=== PATIENT | male | born 1960 | race Caucasian/White ===

== ENCOUNTER 2021-05-09 21:25 | Emergency (ER) | payer OTHER ==
[2021-05-09] MEDS ORDERED: Sodium Chloride 0.9% 10 ML Syringe FLUSH PRN (21:40)
[2021-05-09 22:39] LABS: ANION GAP 9.7 meq/L (7-15); CHLORIDE,CL 105 mmol/L (98-107); SODIUM,NA 142 mmol/L (136-145)
[2021-05-09 23:39] VITALS: BP 137/78; PULSE 89
== END 2021-05-09 22:53 | disposition home or self-care (01) ==
LOC: LL.ED 21:25
DX: R00.2 Palpitations (principal); E83.42 Hypomagnesemia; E78.00 Pure hypercholesterolemia, unspecified; Z88.2 Allergy status to sulfonamides; Z79.899 Other long term (current) drug therapy
CPT/HCPCS: 36415; 80053; 83735; 84443; 84484; 85025; 93005; 93010; 99284; 99285-25

== ENCOUNTER 2022-03-08 16:44 | Emergency (ER) | payer OTHER ==
[2022-03-08 16:50] VITALS: BP 144/86; PULSE 89
== END 2022-03-08 17:40 | disposition home or self-care (01) ==
LOC: LL.ED 16:44
DX: M70.32 Other bursitis of elbow, left elbow (principal); E78.00 Pure hypercholesterolemia, unspecified; Z88.2 Allergy status to sulfonamides; Z79.899 Other long term (current) drug therapy
CPT/HCPCS: 73070-LT; 99283

== ENCOUNTER 2024-05-11 16:55 | Emergency (ER) | payer OTHER ==
[2024-05-11 17:19] LABS: BASOPHILS ABSOLUTE AUTO 0.03 K/uL (0.00-0.20); BASOPHILS PERCENT AUTO 0.3 % (0.0-2.0); EOSINOPHILS ABSOLUTE AUTO 0.23 K/uL (0.00-0.50); EOSINOPHILS PERCENT AUTO 2.6 % (0.0-5.0); HEMATOCRIT 44.6 % (39.0-49.0); HEMOGLOBIN 15.3 g/dL (13.1-16.8); IMMATURE GRAN ABSOLUTE AUTO 0.03 10^3/uL (0.00-0.04); IMMATURE GRAN PERCENT AUTO 0.3 % (0.0-0.4); LYMPHOCYTES ABSOLUTE AUTO 3.04 K/uL (0.50-3.50); LYMPHOCYTES PERCENT AUTO 34.3 % (10.0-50.0); MEAN CORPUSCULAR HEMOGLOBIN 30.1 pg (28.2-33.3); MEAN CORPUSCULAR HGB CONC 34.3 g/dL (31.7-36.0); MEAN CORPUSCULAR VOLUME 87.6 fL (84.0-98.0); MONOCYTES ABSOLUTE AUTO 0.59 K/uL (0.00-1.00); MONOCYTES PERCENT AUTO 6.7 % (2.0-14.0); NEUTROPHILS ABSOLUTE AUTO 4.95 K/uL (1.40-7.00); NEUTROPHILS PERCENT AUTO 55.8 % (45.0-80.0); PLATELET COUNT,PLT 239 K/uL (150-350); RED BLOOD CELL COUNT 5.09 M/uL (4.33-5.41); WHITE BLOOD CELL COUNT,WBC 8.9 K/uL (4.0-10.2)
[2024-05-11] MEDS: Diltiazem 25 MG/5 ML SDV IVPUSH ONE (17:30)
[2024-05-11] MEDS: Sodium Chloride 0.9% 10 ML Syringe FLUSH PRN (17:30)
[2024-05-11 17:46] LABS: ANION GAP 11.3 meq/L (7-15); BILIRUBIN TOTAL 0.3 mg/dL (0.2-1.0); CALCIUM 9.3 mg/dL (8.5-10.1); CARBON DIOXIDE,CO2 26.7 mmol/L (21.0-32.0); CREATININE 1.32 mg/dL (0.51-1.17); EST CRCL DRUG DOSING (CG) 60.42 mL/min; ETHANOL BLOOD MEDICAL 0.005 g/dL (0.000-0.080); MAGNESIUM 1.7 mg/dL (1.8-2.4); POTASSIUM,K 4.1 mmol/L (3.5-5.1); PROTEIN TOTAL,TP 7.7 g/dL (6.4-8.2)
[2024-05-11 18:13] LABS: AMPHETAMINES SCREEN, URINE NEGATIVE (NEGATIVE); BARBITURATE SCREEN,URINE NEGATIVE (NEGATIVE); BENZODIAZEPINES SCREEN,URINE NEGATIVE (NEGATIVE); COCAINE METABOLITES,URINE NEGATIVE (NEGATIVE); EDDP,URINE SCREEN NEGATIVE (NEGATIVE); METHAMPHETAMINES SCREEN, URINE NEGATIVE (NEGATIVE); TCA SCREEN,URINE NEGATIVE (NEGATIVE); THC SCREEN,URINE 50 NG/ML NEGATIVE (NEGATIVE)
[2024-05-11 18:15] LABS: BUPRENORPHINE SCREEN,URINE NEGATIVE (NEGATIVE); OXYCODONE SCREEN,URINE NEGATIVE (NEGATIVE)
[2024-05-11] MEDS: Iopamidol 755 Mg/ML 100 ML Bottle IVPUSH ONE (18:50)
[2024-05-11] MEDS: Magnesium Sulfat/D5W 1GM/100ML 1 GM in Premix Bag 1 BAG IV ONE (19:05)
[2024-05-11] MEDS: Apixaban 5 MG Tab PO ONE (19:05)
[2024-05-11] MEDS: Sodium Chloride 0.9% 500 ML IV SCH (19:05)
[2024-05-11] MEDS: Diltiazem IR 60 MG Tab PO ONE (19:05)
[2024-05-11 20:04] VITALS: BP 122/80; PULSE 64
== END 2024-05-11 20:19 | disposition home or self-care (01) ==
LOC: LL.ED 16:55
DX: I48.91 Unspecified atrial fibrillation (principal); E83.42 Hypomagnesemia; E78.00 Pure hypercholesterolemia, unspecified; Z90.49 Acquired absence of other specified parts of digestive tract; Z79.899 Other long term (current) drug therapy; Z88.2 Allergy status to sulfonamides
CPT/HCPCS: 36415; 71045; 71275; 80053; 80305-QW; 80307; 83735; 83880; 84484; 85025; 85379; 93005; 93010; 96365; 96375; 99284; 99285-25; A9270-GY; J3475; J3490; J7040; Q9967

== ENCOUNTER 2024-05-15 07:27 | Emergency (ER) | payer OTHER ==
[2024-05-15 07:43] LABS: BASOPHILS ABSOLUTE AUTO 0.02 K/uL (0.00-0.20); BASOPHILS PERCENT AUTO 0.3 % (0.0-2.0); EOSINOPHILS ABSOLUTE AUTO 0.04 K/uL (0.00-0.50); EOSINOPHILS PERCENT AUTO 0.5 % (0.0-5.0); HEMATOCRIT 44.8 % (39.0-49.0); IMMATURE GRAN ABSOLUTE AUTO 0.02 10^3/uL (0.00-0.04); IMMATURE GRAN PERCENT AUTO 0.3 % (0.0-0.4); LYMPHOCYTES ABSOLUTE AUTO 1.67 K/uL (0.50-3.50); LYMPHOCYTES PERCENT AUTO 21.2 % (10.0-50.0); MEAN CORPUSCULAR HEMOGLOBIN 29.4 pg (28.2-33.3); MEAN CORPUSCULAR HGB CONC 33.5 g/dL (31.7-36.0); MEAN CORPUSCULAR VOLUME 87.8 fL (84.0-98.0); MONOCYTES ABSOLUTE AUTO 0.37 K/uL (0.00-1.00); MONOCYTES PERCENT AUTO 4.7 % (2.0-14.0); NEUTROPHILS ABSOLUTE AUTO 5.76 K/uL (1.40-7.00); PLATELET COUNT,PLT 263 K/uL (150-350); RED CELL DISTRIBUTION WIDTH 12.8 % (11.2-14.1); WHITE BLOOD CELL COUNT,WBC 7.9 K/uL (4.0-10.2)
[2024-05-15] MEDS ORDERED: Aspirin 81 MG Tab.Chew ONE (07:49)
[2024-05-15 08:07] LABS: ALANINE AMINOTRANSFERASE,ALT 23 U/L (12-78); ALBUMIN 3.9 g/dL (3.4-5.0); ALKALINE PHOSPHATASE 70 IU/L (46-116); ANION GAP 9.3 meq/L (7-15); ASPARTATE AMNIOTRANSFERASE,AST 20 U/L (15-37); BILIRUBIN TOTAL 0.6 mg/dL (0.2-1.0); BLOOD UREA NITROGEN,BUN 22 mg/dL (7-18); CALCIUM 9.4 mg/dL (8.5-10.1); CARBON DIOXIDE,CO2 29.7 mmol/L (21.0-32.0); CHLORIDE,CL 104 mmol/L (98-107); CREATININE 1.31 mg/dL (0.51-1.17); GLUCOSE RANDOM 151 mg/dL (70-99); MAGNESIUM 1.9 mg/dL (1.8-2.4); POTASSIUM,K 4.2 mmol/L (3.5-5.1); PROTEIN TOTAL,TP 7.5 g/dL (6.4-8.2); SODIUM,NA 143 mmol/L (136-145)
[2024-05-15 08:10] LABS: ESTIMATED GFR 60 mL/min (>=60)
[2024-05-15 08:12] LABS: INR 1.1 (0.9-1.1); PROTHROMBIN TIME 10.7 SEC (9.0-11.1); PTT,PARTIAL THROMBOPLSTIN TIME 27.2 SEC (23.8-34.4)
[2024-05-15 08:13] LABS: PRO B-TYPE NATRIUR PEPT,BNPPRO 60 pg/mL (0-125)
[2024-05-15 14:51] VITALS: BP 126/82; PULSE 67
== END 2024-05-15 10:43 | disposition home or self-care (01) ==
LOC: LL.ED 07:27
DX: R07.89 Other chest pain (principal); E78.00 Pure hypercholesterolemia, unspecified; Z90.49 Acquired absence of other specified parts of digestive tract; Z88.2 Allergy status to sulfonamides; Z79.01 Long term (current) use of anticoagulants; Z79.899 Other long term (current) drug therapy
CPT/HCPCS: 36415; 80053; 83735; 83880; 84484; 85025; 85610; 85730; 93005; 99285

== ENCOUNTER 2024-06-23 19:09 | Emergency (ER) | payer OTHER ==
[2024-06-23 20:08] VITALS: BP 142/85; PULSE 82
== END 2024-06-23 20:15 | disposition home or self-care (01) ==
LOC: LL.ED 19:09
DX: R00.2 Palpitations (principal); I48.91 Unspecified atrial fibrillation; E78.00 Pure hypercholesterolemia, unspecified; Z86.79 Personal history of other diseases of the circulatory system; Z88.2 Allergy status to sulfonamides; Z79.899 Other long term (current) drug therapy; Z79.01 Long term (current) use of anticoagulants; Z90.49 Acquired absence of other specified parts of digestive tract
CPT/HCPCS: 93005; 93010; 99284

== ENCOUNTER 2024-06-29 15:24 | Emergency (ER) | payer OTHER ==
[2024-06-29 15:51] LABS: BASOPHILS ABSOLUTE AUTO 0.01 K/uL (0.00-0.20); BASOPHILS PERCENT AUTO 0.2 % (0.0-2.0); EOSINOPHILS ABSOLUTE AUTO 0.12 K/uL (0.00-0.50); EOSINOPHILS PERCENT AUTO 1.9 % (0.0-5.0); HEMATOCRIT 37.5 % (39.0-49.0); HEMOGLOBIN 12.6 g/dL (13.1-16.8); IMMATURE GRAN ABSOLUTE AUTO 0.01 10^3/uL (0.00-0.04); IMMATURE GRAN PERCENT AUTO 0.2 % (0.0-0.4); LYMPHOCYTES ABSOLUTE AUTO 2.13 K/uL (0.50-3.50); LYMPHOCYTES PERCENT AUTO 33.5 % (10.0-50.0); MEAN CORPUSCULAR HEMOGLOBIN 29.8 pg (28.2-33.3); MEAN CORPUSCULAR HGB CONC 33.6 g/dL (31.7-36.0); MEAN CORPUSCULAR VOLUME 88.7 fL (84.0-98.0); MONOCYTES ABSOLUTE AUTO 0.45 K/uL (0.00-1.00); MONOCYTES PERCENT AUTO 7.1 % (2.0-14.0); NEUTROPHILS ABSOLUTE AUTO 3.64 K/uL (1.40-7.00); NEUTROPHILS PERCENT AUTO 57.1 % (45.0-80.0); PLATELET COUNT,PLT 233 K/uL (150-350); RED BLOOD CELL COUNT 4.23 M/uL (4.33-5.41); WHITE BLOOD CELL COUNT,WBC 6.4 K/uL (4.0-10.2)
[2024-06-29 16:12] LABS: ALBUMIN 3.5 g/dL (3.4-5.0); ANION GAP 5.5 meq/L (7-15); BILIRUBIN TOTAL 0.4 mg/dL (0.2-1.0); CALCIUM 9.1 mg/dL (8.5-10.1); CARBON DIOXIDE,CO2 30.5 mmol/L (21.0-32.0); CREATININE 1.42 mg/dL (0.51-1.17); EST CRCL DRUG DOSING (CG) 56.17 mL/min; INR 1.1 (0.9-1.1); MAGNESIUM 1.9 mg/dL (1.8-2.4); POTASSIUM,K 3.9 mmol/L (3.5-5.1); PROTEIN TOTAL,TP 6.9 g/dL (6.4-8.2); PROTHROMBIN TIME 10.6 SEC (9.0-11.1)
[2024-06-29 16:35] VITALS: BP 114/71; PULSE 60
== END 2024-06-29 16:55 | disposition home or self-care (01) ==
LOC: LL.ED 15:24
DX: I49.9 Cardiac arrhythmia, unspecified (principal); E78.00 Pure hypercholesterolemia, unspecified; F17.210 Nicotine dependence, cigarettes, uncomplicated; Z88.0 Allergy status to penicillin; Z79.899 Other long term (current) drug therapy
CPT/HCPCS: 36415; 80053; 83735; 85025; 85610; 93005; 93010; 99284

== ENCOUNTER 2024-09-24 09:30 | Emergency (ER) | payer OTHER ==
[2024-09-24 09:54] LABS: BASOPHILS ABSOLUTE AUTO 0.01 K/uL (0.00-0.20); BASOPHILS PERCENT AUTO 0.2 % (0.0-2.0); EOSINOPHILS ABSOLUTE AUTO 0.03 K/uL (0.00-0.50); EOSINOPHILS PERCENT AUTO 0.5 % (0.0-5.0); IMMATURE GRAN ABSOLUTE AUTO 0.01 10^3/uL (0.00-0.04); IMMATURE GRAN PERCENT AUTO 0.2 % (0.0-0.4); LYMPHOCYTES ABSOLUTE AUTO 1.46 K/uL (0.50-3.50); LYMPHOCYTES PERCENT AUTO 25.8 % (10.0-50.0); MONOCYTES ABSOLUTE AUTO 0.21 K/uL (0.00-1.00); MONOCYTES PERCENT AUTO 3.7 % (2.0-14.0); NEUTROPHILS ABSOLUTE AUTO 3.94 K/uL (1.40-7.00); NEUTROPHILS PERCENT AUTO 69.6 % (45.0-80.0); PLATELET COUNT,PLT 263 K/uL (150-350); RED BLOOD CELL COUNT 4.74 M/uL (4.33-5.41); RED CELL DISTRIBUTION WIDTH 12.2 % (11.2-14.1); WHITE BLOOD CELL COUNT,WBC 5.7 K/uL (4.0-10.2)
[2024-09-24 10:14] LABS: ALANINE AMINOTRANSFERASE,ALT 41.0 U/L (12-78); ASPARTATE AMNIOTRANSFERASE,AST 25.0 U/L (15-37); BILIRUBIN TOTAL 0.6 mg/dL (0.2-1.0); BLOOD UREA NITROGEN,BUN 22.0 mg/dL (7-18); CARBON DIOXIDE,CO2 27.6 mmol/L (21.0-32.0); CHLORIDE,CL 103.0 mmol/L (98-107); CREATININE 1.17 mg/dL (0.51-1.17); EST CRCL DRUG DOSING (CG) 68.17 mL/min; GLUCOSE RANDOM 138.0 mg/dL (70-99); POTASSIUM,K 4.2 mmol/L (3.5-5.1); PROTEIN TOTAL,TP 7.1 g/dL (6.4-8.2); SODIUM,NA 140.0 mmol/L (136-145)
[2024-09-24 10:15] LABS: ESTIMATED GFR 69.0 mL/min (>=60)
[2024-09-24 10:55] VITALS: BP 127/88; PULSE 67
== END 2024-09-24 10:39 | disposition home or self-care (01) ==
LOC: LL.ED 09:30
DX: R00.0 Tachycardia, unspecified (principal); I48.91 Unspecified atrial fibrillation; E78.00 Pure hypercholesterolemia, unspecified; Z79.899 Other long term (current) drug therapy; Z88.2 Allergy status to sulfonamides
CPT/HCPCS: 36415; 80053; 83735; 85025; 93005; 93010; 99284; 99285

== ENCOUNTER 2024-11-17 23:05 | Emergency (ER) | payer OTHER ==
[2024-11-17 23:29] VITALS: BP 151/91; PULSE 69
== END 2024-11-17 23:15 | disposition left against medical advice (07) ==
LOC: LL.ED 23:05
DX: Z53.21 Procedure and treatment not carried out due to patient leaving prior to being seen by health care provider (principal)

== ENCOUNTER 2025-02-05 23:53 | Emergency (ER) | payer OTHER ==
[2025-02-06 00:22] LABS: BASOPHILS ABSOLUTE AUTO 0.02 K/uL (0.00-0.20); BASOPHILS PERCENT AUTO 0.3 % (0.0-2.0); EOSINOPHILS ABSOLUTE AUTO 0.11 K/uL (0.00-0.50); EOSINOPHILS PERCENT AUTO 1.7 % (0.0-5.0); IMMATURE GRAN ABSOLUTE AUTO 0.01 10^3/uL (0.00-0.04); IMMATURE GRAN PERCENT AUTO 0.2 % (0.0-0.4); LYMPHOCYTES ABSOLUTE AUTO 2.57 K/uL (0.50-3.50); LYMPHOCYTES PERCENT AUTO 40.2 % (10.0-50.0); MONOCYTES ABSOLUTE AUTO 0.50 K/uL (0.00-1.00); MONOCYTES PERCENT AUTO 7.8 % (2.0-14.0); NEUTROPHILS ABSOLUTE AUTO 3.18 K/uL (1.40-7.00); NEUTROPHILS PERCENT AUTO 49.8 % (45.0-80.0); PLATELET COUNT,PLT 228 K/uL (150-350); RED BLOOD CELL COUNT 4.36 M/uL (4.33-5.41); RED CELL DISTRIBUTION WIDTH 12.1 % (11.2-14.1); WHITE BLOOD CELL COUNT,WBC 6.4 K/uL (4.0-10.2)
[2025-02-06 00:40] LABS: ALANINE AMINOTRANSFERASE,ALT 36 U/L (12-78); ASPARTATE AMNIOTRANSFERASE,AST 23 U/L (15-37); BILIRUBIN TOTAL 0.2 mg/dL (0.2-1.0); BLOOD UREA NITROGEN,BUN 23 mg/dL (7-18); CARBON DIOXIDE,CO2 27.7 mmol/L (21.0-32.0); CHLORIDE,CL 107 mmol/L (98-107); CREATININE 1.24 mg/dL (0.51-1.17); ESTIMATED GFR 64 mL/min (>=60); GLUCOSE RANDOM 131 mg/dL (70-99); POTASSIUM,K 3.6 mmol/L (3.5-5.1); PROTEIN TOTAL,TP 6.8 g/dL (6.4-8.2); SODIUM,NA 143 mmol/L (136-145)
[2025-02-06 00:50] VITALS: BP 127/85; PULSE 66
[2025-02-06 01:02] LABS: TSH ULTRASENSITIVE 4.382 mIU/mL (0.358-3.740)
== END 2025-02-06 01:13 | disposition home or self-care (01) ==
LOC: LL.ED 23:53
DX: R00.2 Palpitations (principal); E78.00 Pure hypercholesterolemia, unspecified; Z90.49 Acquired absence of other specified parts of digestive tract; Z88.2 Allergy status to sulfonamides; Z79.899 Other long term (current) drug therapy
CPT/HCPCS: 36415; 80053; 83735; 84443; 84484; 85025; 93005; 93010; 99284; 99285